=== PATIENT | female | born 1985 | race Caucasian/White ===

== ENCOUNTER 2018-08-14 09:34 | Emergency (ER) | payer BC, OTHER ==
[2018-08-14 09:43] VITALS: BP 131/98
--- NOTE | 2018-08-14 10:25 | EDM.PDOC ---
ED HPI GENERAL MEDICAL PROBLEM - General Chief Complaint: BUTTON SAWYER Problem Stated Complaint: PELVIC PAIN Time Seen by Provider: 08/14/18 09:58 Source of Information: Reports: Patient, Provider (Dr. Miller around 09:32), RN Notes Reviewed History Limitations: Reports: No Limitations - History of Present Illness INITIAL COMMENTS - FREE TEXT/NARRATIVE: The patient states that she developed left pelvic pain yesterday afternoon, 08/13. The pain is sharp and stabbing in character. It came on suddenly while she was seated at work. It is constant. It is made worse if she is supine, better if she is upright. She has not had recent fever, nausea, vomiting, constipation, diarrhea, or urinary symptoms. She denies having any lightheadedness when she stands. She states that she had similar pain in the past, when she had a ruptured ovarian cyst while in college. The patient went to the [facility] this morning, where a CBC, urinalysis, and urine were performed. Those lab results have been forwarded to us. The patient's CBC is normal. The urinalysis is remarkable for moderate occult blood, small leukocyte esterase, 6-20 WBCs and few bacteria. A urine culture was ordered. Her urine test was negative. I was then contacted by Dr. Miller, the physician at the walk-in clinic, who wanted to send the patient here for either an ultrasound or CT scan to diagnose an ovarian cyst, which she clinically suspected. I informed her that we do not have ultrasound available except for emergencies, but that we do have CT scan capability. The patient's LMP began approximately 08/05/2018, and finished this past 08/11/2018. The patient does not have a PCP. Her Dressing Room Attendant is Dr. Desiree Mckinney. 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 [No Known Home Meds] 08/14/18 [History] Past Medical History BUTTON SAWYER History: Reports: Other (See Below) (Ovarian cysts) - Past Surgical History HEENT Surgical History: Reports: Adenoidectomy, Tonsillectomy Female Surgical History: Reports: Tubal Ligation (2016) Social & Family History - Family History Cardiac: Reports: Hypertension, [place] Neurological: Reports: CVA Endocrine/Metabolic: Reports: Diabetes, type II - Tobacco Use Smoking Status *Q: Never Smoker - Alcohol Use Alcohol Use History: Yes Alcohol Use Frequency: Socially - Recreational Drug Use Recreational Drug Use: No - Living Situation & Occupation Living situation: Reports: , with Spouse, with Family (2 kids) Occupation: Employed (RN) ED ROS GENERAL - Review of Systems Review Of Systems: ROS reveals no pertinent complaints other than HPI. ED EXAM, GI/ABD - Physical Exam Exam: See Below Exam Limited By: No Limitations General Appearance: Alert, WD/WN, No Apparent Distress (Appears comfortable, recumbent on the gurney) Eyes: Bilateral: Normal Appearance, EOMI Ears: Normal External Exam, Hearing Grossly Normal Nose: Normal Inspection, No Blood Throat/Mouth: Normal Inspection, Normal Lips, Normal Voice, No Airway Compromise Head: Atraumatic, Normocephalic Neck: Normal Inspection, Full Range of Motion Respiratory/Chest: No Respiratory Distress, Lungs Clear, Normal Breath Sounds, No Accessory Muscle Use Cardiovascular: Normal Peripheral Pulses, Regular Rate, Rhythm, No Gallop, No JVD, No Murmur, No Rub GI/Abdominal Exam: Normal Bowel Sounds, Soft, No Organomegaly, No Distention, No Abnormal Bruit, No Mass, Pelvis Stable, Tender (Left pelvis only. Nontender elsewhere.), Other (Obese) (Female) Exam: Deferred Rectal (Female) Exam: Deferred Back Exam: Normal Inspection, Full Range of Motion, NT Extremities: Normal Inspection, Normal Range of Motion, Non-Tender, Normal Capillary Refill, No Pedal Edema Neurological: Alert, Oriented, CN II-XII Intact, Normal Cognition, Normal Gait, Normal Reflexes, No Motor/Sensory Deficits Psychiatric: Normal Affect, Normal Mood Skin Exam: Warm, Dry, Intact, Normal Color, No Rash Lymphatic: No Adenopathy Course - Vital Signs Last Recorded V/S: Last Vital Signs Temp 36.6 C 08/14/18 09:40 Pulse 62 08/14/18 09:40 Resp 18 08/14/18 09:40 BP 131/98 H 08/14/18 09:40 Pulse Ox 100 08/14/18 09:40 Orthostatic Blood Pressure [ 122/85 Standing] Orthostatic Blood Pressure [ 115/71 Supine] - Re-Assessments/Exams Free Text/Narrative Re-Assessment/Exam: 08/14/18 10:21 Clinically, the patient is suffering from a ruptured left ovarian cyst. She is tender only in the left pelvis, and nowhere else, but her tenderness and description of pain are relatively mild, and not consistent with an ovarian torsion. An ectopic has been ruled out with a negative test. The patient denies feeling lightheaded when she stands, but I have ordered orthostatics to confirm that she is hemodynamically stable. 08/14/18 10:46 The patient is not orthostatic. 08/14/18 10:58 The patient was sent over from the clinic to possibly receive a CT scan or emergency ultrasound to evaluate for a ruptured ovarian cyst, however, neither test is indicated, as the patient's orthostatics are negative, and the CBC that was performed at the clinic does not show anemia. The diagnosis of a ruptured ovarian cyst is primarily clinical, sometimes augmented with an ultrasound, but unless there is a concern for significant bleeding into the pelvis, an ultrasound is not indicated. A CT scan is a poor test to diagnose a ruptured ovarian cyst, although is sensitive for intra-abdominal blood, but, again, since the patient is neither anemic nor orthostatic, surgery would not be indicated, therefore the risk of radiation far outweights the potential benefit. All of this was explained to the patient, who appears to understand. Going forward, I am recommending that she take [id number] ibuprofen. Departure - Departure Time of Disposition: 11:03 Disposition: Home, Self-Care 01 Condition: Good Clinical Impression: Left ovarian cyst - Discharge Information *PRESCRIPTION DRUG MONITORING PROGRAM REVIEWED*: Not Applicable *COPY OF PRESCRIPTION DRUG MONITORING REPORT IN PATIENT RON: Not Applicable Instructions: Ovarian Cyst, [id number] Referrals: Desiree Mckinney MD [Physician] - Forms: ED Department Discharge Additional Instructions: You were seen in the emergency room for left pelvic pain that began suddenly yesterday. Workup in the clinic included a CBC, urinalysis, and urine test, all of which were unremarkable. Your orthostatics were checked in the ER, and were normal. Based on your history, physical exam, clinic tests, and orthostatics, you are most likely suffering from a ruptured left ovarian cyst. As discussed, the diagnosis of a ruptured ovarian cyst is primarily clinical, sometimes augmented with an ultrasound, however, an emergency ultrasound or CT scan are only indicated if there is a concern of significant bleeding into the pelvis, which is not suspected in your case. We recommend that you take [id number] ibuprofen, 2-3 tablets (400-600 mg) every 8 hours, with food, as needed for discomfort. If any other problems, such as the development of lightheadedness when you stand up, or significantly worse pelvic pain or bloating, please do not hesitate to return to the ER for reevaluation.
== END 2018-08-14 11:15 | disposition home or self-care (01) ==
LOC: JD.ED 09:34
DX: N83.202 Unspecified ovarian cyst, left side (principal); Z88.1 Allergy status to other antibiotic agents
CPT/HCPCS: 99282; 99283

== ENCOUNTER 2023-08-21 07:17 | Emergency (ER) | payer SELFPAY ==
[2023-08-21] MEDS: Sodium Chloride 0.9% 1,000 ML IV ONE (08:15)
[2023-08-21] MEDS: Sodium Chloride 0.9% 10 ML Syringe FLUSH PRN (08:15)
[2023-08-21 08:32] LABS: BASOPHILS PERCENT AUTO 0.5 % (0.0-1.0); EOSINOPHILS ABSOLUTE AUTO 0.1 K/mm3 (0.0-0.4); EOSINOPHILS PERCENT AUTO 1.2 % (0.0-6.0); HEMATOCRIT 38.2 % (37.0-47.0); HEMOGLOBIN 13.1 gm/dl (12.0-16.0); IMMATURE GRAN ABSOLUTE AUTO 0.02 K/mm3 (0.00-0.05); IMMATURE GRAN PERCENT AUTO 0.2 % (0.0-0.4); LYMPHOCYTES ABSOLUTE AUTO 1.3 K/mm3 (1.0-4.8); LYMPHOCYTES PERCENT AUTO 15.2 % (24.0-44.0); MEAN CORPUSCULAR HEMOGLOBIN 32.1 pg (28.0-32.0); MEAN CORPUSCULAR HGB CONC 34.3 g/dl (32.0-36.0); MEAN CORPUSCULAR VOLUME 93.6 fl (83.0-99.0); MEAN PLATELET VOLUME 9.4 fl (9.4-12.3); MONOCYTES ABSOLUTE AUTO 0.5 K/mm3 (0.0-0.8); MONOCYTES PERCENT AUTO 6.2 % (0.0-8.0); NEUTROPHILS ABSOLUTE AUTO 6.3 K/mm3 (1.8-7.7); NEUTROPHILS PERCENT AUTO 76.7 % (41.0-71.0); PLATELET COUNT,PLT 200 K/mm3 (150-400); RED BLOOD CELL COUNT 4.08 M/mm3 (4.10-5.30)
[2023-08-21 08:44] LABS: A/G RATIO 1.1 (1-2); ALANINE AMINOTRANSFERASE,ALT 23 U/L (14-59); ALBUMIN 3.7 g/dl (3.4-5.0); ALKALINE PHOSPHATASE 50 U/L (46-116); ANION GAP 14.5 (5-15); ASPARTATE AMNIOTRANSFERASE,AST 10 U/L (15-37); BILIRUBIN TOTAL 0.3 mg/dL (0.2-1.0); BLOOD UREA NITROGEN,BUN 9 mg/dL (7-18); CALCIUM 8.3 mg/dL (8.5-10.1); CARBON DIOXIDE,CO2 24 mEq/L (21-32); CHLORIDE,CL 106 mEq/L (98-107); CREATININE 0.9 mg/dL (0.55-1.02); EST CRCL DRUG DOSING (CG) 76.26 mL/min; ESTIMATED GFR 84 mL/min (>60); GLUCOSE RANDOM 89 mg/dL (70-99); MAGNESIUM 1.9 mg/dL (1.8-2.4); POTASSIUM,K 3.5 mEq/L (3.5-5.1); PROTEIN TOTAL,TP 7.1 g/dl (6.4-8.2); SODIUM,NA 141 mEq/L (136-145)
[2023-08-21 08:45] LABS: TROPONIN I HIGH SENSITIVITY < 4 pg/mL (<=51)
[2023-08-21 09:45] LABS: APPEARANCE,URINE CLEAR (Clear); BILIRUBIN,URINE NEGATIVE (Negative); COLOR,URINE YELLOW (Yellow); GLUCOSE,URINE NEGATIVE (Negative); KETONES,URINE NEGATIVE (Negative); LEUKOCYTE ESTERASE,URINE NEGATIVE (Negative); NITRITE,URINE NEGATIVE (Negative); OCCULT BLOOD,URINE NEGATIVE (Negative); PROTEIN,URINE 1+ (Negative); UROBILINOGEN,URINE 0.2 (0.2-1.0)
[2023-08-21 09:50] LABS: BACTERIA,URINE FEW /hpf (FEW); MUCUS,URINE MANY /hpf (FEW); RBC,URINE 0-5 /hpf (0-5); WBC,URINE 0-5 /hpf (0-5)
[2023-08-21 11:55] VITALS: BP 124/99; PULSE 71
== END 2023-08-21 11:43 | disposition home or self-care (01) ==
LOC: JD.ED 07:17
DX: R55 Syncope and collapse (principal); Z88.8 Allergy status to other drugs, medicaments and biological substances
CPT/HCPCS: 36415; 80053; 81001; 83735; 84484; 85025; 93005; 93246; 96360; 99284; J3490; J7030; 93010